=== PATIENT | female | born 1980 | race Caucasian/White ===

== ENCOUNTER 2018-02-11 01:50 | Inpatient (IN) | payer BC ==
[~2018-02-11] VITALS: Ht 154.9 cm; Wt 83.5 kg
[~2018-02-11 01:50] MED LIST: ALBU8.5H8 INH; MIDOL; MULTIVIT; OMEP20CA4 PO; PRED20TA PO; PREN1TAB49 PO; [UNRECOGNIZED DRUG - OTHER]
[2018-02-11] MEDS ORDERED: LR 1,000 ML IV ONE (08:51)
[2018-02-11] MEDS ORDERED: OXYTOCIN/0.9 % SODIUM CHLORIDE 1,000 ML IV SCH (08:51)
[2018-02-11] MEDS ORDERED: LR 1,000 ML IV SCH ×2 (08:51→13:20)
[2018-02-11] MEDS ORDERED: TERBUTALINE SULFATE 1 MG/ML VIAL SUBCUT ONE (09:00)
[2018-02-11] MEDS ORDERED: NALBUPHINE HCL 10 MG/ML AMP IVP PRN ×2 (09:00→13:00)
[2018-02-11] MEDS ORDERED: CEFAZOLIN 2 GM IVPB PREMIX 50 ML IV ONE (09:00)
[2018-02-11] MEDS ORDERED: OXYTOCIN/0.9 % SODIUM CHLORIDE 1,000 ML IV ONE (09:24)
[2018-02-11 09:33] LABS: BASOPHILS # (AUTO) 0.1 K/uL (0.0-0.2); BASOPHILS % (AUTO) 0.7 % (0.0-2.0); EOSINOPHILS # (AUTO) 0.1 K/uL (0.0-0.4); EOSINOPHILS % (AUTO) 0.9 % (0.0-4.0); HEMOGLOBIN 13.9 g/dL (12.0-16.0); LYMPHOCYTES # (AUTO) 1.7 K/uL (1.0-5.5); LYMPHOCYTES % (AUTO) 19.1 % (20.5-51.5); MEAN CORPUSCULAR HEMOGLOBIN 30 pg (27-31); MEAN CORPUSCULAR HGB CONC 32 % (32-36); MEAN CORPUSCULAR VOLUME 92 fL (79.0-98.0); MONOCYTES # (AUTO) 0.5 K/uL (0.0-1.0); NEUTROPHILS # (AUTO) 6.7 K/uL (1.8-7.7); NEUTROPHILS % (AUTO) 73.3 % (40.0-70.0); PLATELET COUNT (AUTO) 330 K/uL (130-430); RED BLOOD CELL COUNT(AUTO) 4.69 MIL/uL (4.2-6.2); RED CELL DISTRIBUTION WIDTH 13.3 % (9.0-15.0); WHITE BLOOD COUNT (AUTO) 9.1 K/uL (4.8-10.8)
[2018-02-11] MEDS ORDERED: NALOXONE HCL 0.4 MG/ML AMP (NARCAN) IVP PRN ×2 (13:00)
[2018-02-11] MEDS ORDERED: DIPHENHYDRAMINE INJ 50 MG/ML VIAL IVP PRN (13:00)
[2018-02-11] MEDS ORDERED: fentaNYL CITRATE/PF 100 MCG/2 ML AMP IVP PRN ×2 (13:00)
[2018-02-11] MEDS ORDERED: KETOROLAC TROMETHAMINE 30 MG VIAL IVP PRN (13:00)
[2018-02-11] MEDS ORDERED: KETOROLAC TROMETHAMINE 60 MG/2 ML VIAL IM PRN (13:00)
[2018-02-11] MEDS ORDERED: ONDANSETRON HCL 4 MG/2 ML VIAL IVP PRN ×2 (13:00)
[2018-02-11] MEDS ORDERED: ANUSOL 1 EA SUPP.RECT (PREPARATION H) RC PRN (13:30)
[2018-02-11] MEDS ORDERED: BISACODYL 10 MG/SUPPOSITORY RC PRN (13:30)
[2018-02-11] MEDS ORDERED: IBUPROFEN 800 MG TABLET PO PRN (13:30)
[2018-02-11] MEDS ORDERED: SIMETHICONE 80 MG TAB.CHEW PO PRN (13:30)
[2018-02-11] MEDS ORDERED: DIPH-TET-PERTUS Vaccine 0.5 ML VIAL (ADACEL) I.M. PRN (13:30)
[2018-02-11] MEDS ORDERED: MEPERIDINE HCL/PF 50 MG/ML AMP IM PRN (13:30)
[2018-02-11] MEDS ORDERED: RHO(D) IMMUNE GLOBULIN/MALTOSE 1500 UNITS/1.3 ML (WINHRO) IM PRN (13:30)
[2018-02-11] MEDS ORDERED: LANOLIN 7 GM OINT. TP PRN (13:30)
[2018-02-11 13:34] VITALS: BP_SYST 134
[2018-02-11] MEDS ORDERED: NS 1000 ML IV.SOLN IV ONE (13:40)
[2018-02-11] MEDS ORDERED: LR 1,000 ML IV.SOLN IV ONE (13:40)
[2018-02-11] MEDS ORDERED: MORPHINE SULFATE 10MG/10ML PF AMP ONE (13:40)
[2018-02-11] MEDS ORDERED: BUPIVACAINE /DEX PF 0.75% SPINAL 2 ML AMP INJ ONE (13:40)
[2018-02-11] MEDS: CEFAZOLIN 1 GM IVPB PREMIX 50 ML IV SCH ×2 (18:30→23:29)
[2018-02-11] MEDS ORDERED: TEMAZEPAM 15 MG CAPSULE PO PRN (21:00)
[2018-02-12] MEDS: CEFAZOLIN 1 GM IVPB PREMIX 50 ML IV SCH (06:18)
[2018-02-12 08:03] LABS: BASOPHILS % (AUTO) 0.2 % (0.0-2.0); EOSINOPHILS % (AUTO) 0.3 % (0.0-4.0); HEMATOCRIT 33.1 % (36-48); HEMOGLOBIN 10.9 g/dL (12.0-16.0); LYMPHOCYTES # (AUTO) 1.3 K/uL (1.0-5.5); LYMPHOCYTES % (AUTO) 10.8 % (20.5-51.5); MEAN CORPUSCULAR HEMOGLOBIN 31 pg (27-31); MEAN CORPUSCULAR HGB CONC 33 % (32-36); MEAN CORPUSCULAR VOLUME 93 fL (79.0-98.0); MONOCYTES # (AUTO) 0.7 K/uL (0.0-1.0); MONOCYTES % (AUTO) 5.8 % (1.7-9.3); NEUTROPHILS # (AUTO) 10.1 K/uL (1.8-7.7); NEUTROPHILS % (AUTO) 82.9 % (40.0-70.0); PLATELET COUNT (AUTO) 272 K/uL (130-430); RED BLOOD CELL COUNT(AUTO) 3.56 MIL/uL (4.2-6.2); RED CELL DISTRIBUTION WIDTH 13.2 % (9.0-15.0); WHITE BLOOD COUNT (AUTO) 12.1 K/uL (4.8-10.8)
[2018-02-12] MEDS ORDERED: OXYCODONE/ACETAMINOPHEN 5-325 TABLET PO PRN (10:00)
[2018-02-12] MEDS: DOCUSATE SODIUM 100 MG CAPSULE PO PRN ×2 (18:01→21:00)
[2018-02-12] MEDS: OXYCODONE/ACETAMINOPHEN 5-325 TABLET PO PRN (18:01)
[2018-02-12] MEDS: HYDROcodone/ACETAMIN 5-325 MG TAB (NORCO/ VICODIN) PO PRN (22:28)
[2018-02-13] MEDS: OXYCODONE/ACETAMINOPHEN 5-325 TABLET PO PRN ×3 (04:22→20:21)
[2018-02-13] MEDS: HYDROcodone/ACETAMIN 5-325 MG TAB (NORCO/ VICODIN) PO PRN (09:24)
[2018-02-14] MEDS: OXYCODONE/ACETAMINOPHEN 5-325 TABLET PO PRN ×4 (02:46→22:59)
[2018-02-14] MEDS: SENNOSIDES/DOCUSATE SODIUM 1 TAB TABLET(SENOKOT-S) PO PRN (16:25)
[2018-02-14] MEDS: HYDROcodone/ACETAMIN 5-325 MG TAB (NORCO/ VICODIN) PO PRN (21:06)
[2018-02-15] MEDS: HYDROcodone/ACETAMIN 5-325 MG TAB (NORCO/ VICODIN) PO PRN ×2 (03:11→13:30)
[2018-02-15] MEDS: OXYCODONE/ACETAMINOPHEN 5-325 TABLET PO PRN (05:56)
[2018-02-15] MEDS: SENNOSIDES/DOCUSATE SODIUM 1 TAB TABLET(SENOKOT-S) PO PRN (05:57)
== END 2018-02-15 17:08 | disposition home or self-care (01) | DRG 788 ==
LOC: SPU 01:50 → OBSVTOIN 08:45 → SPU 21:02
PROVIDERS: ADMIT Specialist; ATTEND Specialist
PROC: 10D00Z1 Extraction of Products of Conception, Low, Open Approach (ICD-10-PCS; principal; 2018-02-11 12:00)
DX: O69.1XX0 Labor and delivery complicated by cord around neck, with compression, not applicable or unspecified (principal); O76 Abnormality in fetal heart rate and rhythm complicating labor and delivery; O99.52 Diseases of the respiratory system complicating childbirth; J45.909 Unspecified asthma, uncomplicated; Z3A.38 38 weeks gestation of pregnancy; Z37.0 Single live birth
CPT/HCPCS: 36415; 76815; 81002-TC; 85025; 86592; 86886; 86900; 86901; 88307; 94760; G0378; J0690; J1885; J2274; J2590; J3490; J7030; J7120

== ENCOUNTER 2020-10-20 14:55 | Emergency (ER) | payer BC, OTHER ==
[~2020-10-20] VITALS: Ht 154.9 cm; Wt 81.6 kg
--- NOTE | 2020-10-20 14:55 | NUR ---
Patient to ER bed 2 to gown for evaluation. Side rails up. Report given to ISIDORO TREJO.
[2020-10-20 15:10] VITALS: BP_SYST 159
--- NOTE | 2020-10-20 15:20 | NUR ---
pt arrives from home w/ c/o chest pressure, non-raditating, midsternal 8/10 for one week. Pt has been taking Aspirin 81mg prophylacticly along w/ Albuterol inhalers at home w/out relief. 12 lead EKG done.
--- NOTE | 2020-10-20 15:24 | NUR ---
x-ray at the bedside
--- NOTE | 2020-10-20 15:30 | NUR ---
ER at bedside examining patient.
[2020-10-20 16:09] LABS: BASOPHILS # (AUTO) 0.1 K/uL (0.0-0.2); BASOPHILS % (AUTO) 0.9 % (0.0-2.0); EOSINOPHILS # (AUTO) 0.1 K/uL (0.0-0.4); EOSINOPHILS % (AUTO) 1.4 % (0.0-4.0); HEMATOCRIT 41.1 % (36-48); HEMOGLOBIN 13.8 g/dL (12.0-16.0); LYMPHOCYTES # (AUTO) 2.1 K/uL (1.0-5.5); LYMPHOCYTES % (AUTO) 25.4 % (20.5-51.5); MEAN CORPUSCULAR HEMOGLOBIN 29 pg (27-31); MEAN CORPUSCULAR HGB CONC 34 % (32-36); MEAN CORPUSCULAR VOLUME 86 fL (79.0-98.0); MONOCYTES # (AUTO) 0.5 K/uL (0.0-1.0); MONOCYTES % (AUTO) 6.6 % (1.7-9.3); NEUTROPHILS # (AUTO) 5.3 K/uL (1.8-7.7); NEUTROPHILS % (AUTO) 65.7 % (40.0-70.0); PLATELET COUNT (AUTO) 353 K/uL (130-430); WHITE BLOOD COUNT (AUTO) 8.1 K/uL (4.8-10.8)
[2020-10-20 16:17] LABS: CALCIUM 8.3 mg/dL (8.4-11.0); CREATININE 0.79 mg/dL (0.55-1.30); POTASSIUM 3.7 mmol/L (3.5-5.1)
[2020-10-20 16:19] LABS: PROTHROMBIN TIME 9.9 SECS (9.5-12.5)
[2020-10-20 16:25] LABS: ALBUMIN 3.7 g/dL (3.4-4.8); TOTAL BILIRUBIN 0.2 mg/dL (0.0-1.0)
--- NOTE | 2020-10-20 16:30 | NUR ---
pt is resting in bed
[2020-10-20 17:17] VITALS: BP_SYST 135
== END 2020-10-20 17:18 | disposition home or self-care (01) ==
LOC: SED 14:55
DX: J98.01 Acute bronchospasm (principal); E03.9 Hypothyroidism, unspecified; Z91.018 Allergy to other foods; Z79.899 Other long term (current) drug therapy
CPT/HCPCS: 36415; 71045; 80053; 83880; 84484; 84703; 85025; 85379; 85610-TC; 85730-TC; 93005; 99285